=== PATIENT | female | born 1970 | race Caucasian/White ===

== ENCOUNTER 2018-09-21 12:31 | Emergency (ER) | payer OTHER | END 2018-09-21 13:54 | disposition home or self-care (01) | LOC: JERFT 12:31 ==

== ENCOUNTER 2018-09-28 08:18 | Emergency (ER) | payer OTHER ==
[2018-09-28 08:22] VITALS: BP 128/70; PULSE 94; TEMP 98.4; BMI 27.4
--- NOTE | 2018-09-28 08:41 | PDOC ---
Suture Removal/Wound Check HPI - History of Present Illness Chief Complaint: Suture/Staple Removal(Here) Stated Complaint: STITCHES REMOVE Time Seen by Provider: 09/28/18 08:40 Date of Last ED visit: 10/22/18 - Previous ED Treatment Type of procedure performed on last visit: Yes: Laceration Repair Tetanus Immunization: Yes: Given at last ED visit - Onset of Previous Treatment Date of Occurence: 09/21/18 Comment:: 09/28/18 09:25 5 stitches removed to L anterior knee. No erythema, swelling, discharge. Patient tolerated well. Past History - Past Medical History Allergies/Adverse Reactions: Allergies Allergy/AdvReac Type Severity Reaction Status Date / Time Penicillins Allergy Verified 09/28/18 08:21 Home Medications: Ambulatory Orders Atorvastatin Ca [Lipitor] 20 mg PO HS 11/06/15 Dapagliflozin Propanediol [Farxiga] 10 mg PO DAILY 11/06/15 Multivitamin [Poly-Vitamin] 1 each PO DAILY 11/06/15 metFORMIN HCL [Metformin ER Osmotic] 1,000 mg PO BID 11/06/15 Ibuprofen 800 mg PO Q8H PRN #20 tablet 09/21/18 Sulfamethoxazole/Trimethoprim [Bactrim Ds -] 1 tab PO BID 5 Days #10 tablet Anemia: Yes Asthma: No Cancer: No CVA: No COPD: No CHF: No Diabetes: Yes HTN: Yes Hypercholesterolemia: Yes Seizures: Yes (x1 episode during childhood) Thyroid Disease: No - Suicide/Smoking/Psychosocial Hx Smoking History: Never smoked Hx Alcohol Use: No Drug/Substance Use Hx: No Substance Use Type: None *Physical Exam - Vital Signs Last Vital Signs Temp Pulse Resp BP Pulse Ox 98.4 F 94 H 18 128/70 99 09/28/18 08:19 09/28/18 08:19 09/28/18 08:19 09/28/18 08:19 09/28/18 08:19 *DC/Admit/Observation/Transfer Diagnosis at time of Disposition: Visit for suture removal - Discharge Dispostion Disposition: HOME Condition at time of disposition: Stable Decision to Admit order: No - Referrals Referrals: Anton Yi [Primary Care Provider] - - Patient Instructions Printed Discharge Instructions: DI for Suture Removal - Post Discharge Activity
== END 2018-09-28 09:27 | disposition home or self-care (01) ==
LOC: JERFT 08:18
DX: Z48.817 Encounter for surgical aftercare following surgery on the skin and subcutaneous tissue (principal); Z48.02 Encounter for removal of sutures
CPT/HCPCS: 99281-25

== ENCOUNTER 2021-04-27 09:00 | Emergency (ER) | payer OTHER ==
[2021-04-27 09:04] VITALS: BP 162/83; PULSE 109; TEMP 97.9; BMI 28.3
== END 2021-04-27 10:00 | disposition home or self-care (01) ==
LOC: JCOVINFU 09:00
DX: Z20.822 Contact with and (suspected) exposure to COVID-19 (principal)
CPT/HCPCS: 99282-25

== ENCOUNTER 2023-04-12 18:48 | Emergency (ER) | payer OTHER ==
[2023-04-12 19:14] VITALS: BP 121/78; PULSE 96; RESP 20; TEMP 99; BMI 26.5
== END 2023-04-12 21:52 | disposition home or self-care (01) ==
LOC: JERFT 18:48
DX: S42.201A Unspecified fracture of upper end of right humerus, initial encounter for closed fracture (principal); M54.2 Cervicalgia; M54.9 Dorsalgia, unspecified; R51.9 Headache, unspecified; W01.0XXA Fall on same level from slipping, tripping and stumbling without subsequent striking against object, initial encounter; W22.8XXA Striking against or struck by other objects, initial encounter
CPT/HCPCS: 70450-TC; 72125-TC; 93005; 93010; 99284-25